=== PATIENT | male | born 1960 | race Caucasian/White ===

== ENCOUNTER 2021-01-19 01:27 | Emergency (ER) | payer BC, OTHER ==
[~2021-01-19] VITALS: Ht 172.7 cm; Wt 74.8 kg
[~2021-01-19 01:27] MED LIST: ATOR10TA PO
--- NOTE | 2021-01-19 01:27 | NUR ---
C/O INTERMITTENT MIDSTERNAL CHEST DISCOMFORT, INDIGESTION RADIATING TO BILATERAL FOREARM TINGLING X2 DAYS., PT AAOX4, DENIES SOB. NOT IN ACUTE DISTRESS, PT TO BED 2, PIV STARTED ,BLOOD DRAWN, PENDING ER PROVIDER CHASITY
[2021-01-19] MEDS ORDERED: MAG HYDROX/AL HYDROX/SIMETH 30 ML UDC ONE (02:09)
[2021-01-19] MEDS ORDERED: LIDOCAINE VISCOUS 2% UD 15 ML UDC ONE (02:09)
[2021-01-19] MEDS ORDERED: DICYCLOMINE HCL 10 MG/5 ML UDC ONE (02:10)
[2021-01-19] MEDS ORDERED: ASPIRIN 81 MG TAB.CHEW ONE (02:10)
[2021-01-19] MEDS: DICYCLOMINE HCL 10 MG/5 ML UDC PO ONE (02:15)
[2021-01-19] MEDS: MAG HYDROX/AL HYDROX/SIMETH 30 ML UDC PO ONE (02:15)
[2021-01-19] MEDS: LIDOCAINE VISCOUS 2% UD 15 ML UDC MM ONE (02:15)
[2021-01-19] MEDS: ASPIRIN 81 MG TAB.CHEW PO ONE (02:15)
[2021-01-19 02:18] LABS: BASOPHILS # (AUTO) 0.1 /CMM (0.0-0.2); BASOPHILS % (AUTO) 1.2 % (0.0-2.0); EOSINOPHILS % (AUTO) 1.9 % (0.0-6.0); HEMATOCRIT 45 % (39-51); HEMOGLOBIN 15.4 g/dL (13.5-17.5); LYMPHOCYTES # (AUTO) 2.9 /CMM (0.8-4.8); LYMPHOCYTES % (AUTO) 33.6 % (20.0-44.0); MEAN CORPUSCULAR HGB CONC 34 g/dl (31.0-36.0); MEAN CORPUSCULAR VOLUME 89 fL (80-96); MONOCYTES # (AUTO) 0.9 /CMM (0.1-1.30); MONOCYTES % (AUTO) 10.6 % (2.0-12.0); NEUTROPHILS # (AUTO) 4.6 /CMM (1.8-8.9); NEUTROPHILS % (AUTO) 52.7 % (43.0-81.0); PLATELET COUNT (AUTO) 215 /CMM (150-450); RED BLOOD CELL COUNT(AUTO) 5.13 MIL/uL (4.5-6.0); WHITE BLOOD COUNT (AUTO) 8.7 K/uL (4.3-11.0)
[2021-01-19 02:20] LABS: CALCIUM, SERUM 9.6 mg/dL (8.5-10.1); CARBON DIOXIDE 27 mmol/L (21-32); CHLORIDE 103 mmol/L (98-107); CREATININE 1.3 mg/dL (0.6-1.3); GLUCOSE 106 mg/dL (74-106); POTASSIUM 3.6 mmol/L (3.5-5.1); SODIUM SERUM 142 mmol/L (136-145); UREA NITROGEN, BLOOD 18 mg/dL (7-18)
[2021-01-19 02:33] LABS: ALANINE AMINOTRANSFERASE 35 U/L (12-78); ALBUMIN 4.2 g/dL (3.4-5.0); ALKALINE PHOSPHATASE 98 U/L (46-116); ASPARTATE AMINOTRANSFERASE 22 U/L (15-37); BILIRUBIN,DIRECT 0.1 mg/dL (0.0-0.2); BILIRUBIN,TOTAL 0.5 mg/dL (0.2-1.0); NT-PRO BNP 22 pg/mL (0-125); TOTAL PROTEIN, SERUM 7.6 g/dL (6.4-8.2)
--- NOTE | 2021-01-19 02:45 | NUR ---
pt will be staying for 2nd troponin 445am
[2021-01-19] MEDS ORDERED: LANS30CA56 PO (03:31)
--- NOTE | 2021-01-19 05:44 | NUR ---
Patient discharged to home in stable condition. Written and verbal after care instructions given. Patient verbalizes understanding of instruction.IV removed. Catheter intact and site benign. Pressure and 4x4 applied to site. No bleeding noted.
[2021-01-19 05:48] VITALS: BP 130/90
== END 2021-01-19 05:49 | disposition home or self-care (01) ==
LOC: ER 01:27
DX: R07.89 Other chest pain (principal); E78.00 Pure hypercholesterolemia, unspecified; Z98.890 Other specified postprocedural states; Z88.1 Allergy status to other antibiotic agents; Z79.899 Other long term (current) drug therapy
CPT/HCPCS: 36415; 71045-TC; 80048-TC; 80076-TC; 83880; 84484-TC; 85025-TC; 85378-TC

== ENCOUNTER 2021-03-10 04:24 | Emergency (ER) | payer BC ==
[~2021-03-10] VITALS: Ht 170.2 cm; Wt 68.9 kg
[~2021-03-10 04:24] MED LIST changes: +LANS30CA56 PO
--- NOTE | 2021-03-10 04:30 | NUR ---
PATIENT BIBSELF. C/O KIDNEY PAIN AND BACK PAIN. PATIENT IS A/O X 4, RR EVEN AND UNLABORED, NO SIGNS OF SOB NOTED. PATIENT CONNCETED TO [employer].
--- NOTE | 2021-03-10 04:53 | NUR ---
PATIENT TAKEN TO RAD
[2021-03-10 04:58] LABS: BILIRUBIN,URINE Negative (NEGATIVE); COLOR,URINE YELLOW (YELLOW); LEUKOCYTE ESTERASE ,URINE Negative (NEGATIVE); NITRITE, URINE Negative (NEGATIVE); PROTEIN,URINE Negative (NEGATIVE); UGLUCOSE Negative (NEGATIVE); UROBILINOGEN,URINE 0.2 EU/dL (0.2)
--- NOTE | 2021-03-10 05:16 | NUR ---
PATIENT RETURNED FROM RAD
[2021-03-10] MEDS ORDERED: IBUP-1957 PO (05:26)
[2021-03-10 05:30] VITALS: BP 128/79
[2021-03-10] MEDS ORDERED: IBUPROFEN 400 MG TABLET PO ONE (05:30)
--- NOTE | 2021-03-10 05:30 | NUR ---
Patient discharged to home in stable condition. RX and Written and verbal after care instructions given. Patient verbalizes understanding of instruction.
== END 2021-03-10 05:30 | disposition home or self-care (01) ==
LOC: ER 04:39
DX: M54.6 Pain in thoracic spine (principal); E78.00 Pure hypercholesterolemia, unspecified; Z98.890 Other specified postprocedural states; Z88.1 Allergy status to other antibiotic agents; Z79.899 Other long term (current) drug therapy
CPT/HCPCS: 71045-TC; 72074-TC; 74018

== ENCOUNTER 2021-06-02 04:21 | Emergency (ER) | payer BC ==
[~2021-06-02] VITALS: Ht 172.7 cm; Wt 76.2 kg
[~2021-06-02 04:21] MED LIST changes: +IBUP-1957 PO
--- NOTE | 2021-06-02 04:50 | NUR ---
PATIENT BIB SELF FROM HOME C/O UPPER ABDOMINAL PAIN RADIATING ACROSS UPPER QUADRANTS STARTED LAST NIGHT. PATIENT ALSO NOTICED BUMP ABOVE UMBILICUS FOR PAST FEW DAYS. PATIENT IS A/O X 4, RR EVEN AND UNLABORED, NO SOB NOTED. PATIENT CONNECTED TO CARDIAC AND POX MONITOR.
[2021-06-02] MEDS ORDERED: IV NS 0.9% 1,000 ML BAG IV ONE (05:00)
--- NOTE | 2021-06-02 05:03 | NUR ---
PATIENT UNABLE TO PROVIDE URINE AT THIS TIME.
--- NOTE | 2021-06-02 05:09 | NUR ---
BLOOD TAKEN AND SENT TO LAB
[2021-06-02 05:30] LABS: BASOPHILS % (AUTO) 0.6 % (0.0-2.0); EOSINOPHILS % (AUTO) 2.3 % (0.0-6.0); HEMATOCRIT 46 % (39-51); HEMOGLOBIN 15.4 g/dL (13.5-17.5); LYMPHOCYTES # (AUTO) 2.3 K/uL (0.8-4.8); LYMPHOCYTES % (AUTO) 29.4 % (20.0-44.0); MEAN CORPUSCULAR HGB CONC 34 g/dl (31.0-36.0); MEAN CORPUSCULAR VOLUME 88 fL (80-96); MONOCYTES # (AUTO) 0.7 K/uL (0.1-1.30); MONOCYTES % (AUTO) 8.7 % (2.0-12.0); NEUTROPHILS # (AUTO) 4.6 K/uL (1.8-8.9); PLATELET COUNT (AUTO) 230 K/uL (150-450); RED BLOOD CELL COUNT(AUTO) 5.22 MIL/uL (4.5-6.0); WHITE BLOOD COUNT (AUTO) 7.8 K/uL (4.3-11.0)
[2021-06-02 05:43] LABS: CALCIUM, SERUM 8.9 mg/dL (8.5-10.1); CARBON DIOXIDE 28 mmol/L (21-32); CHLORIDE 102 mmol/L (98-107); CREATININE 1.3 mg/dL (0.6-1.3); GLUCOSE 108 mg/dL (74-106); POTASSIUM 3.5 mmol/L (3.5-5.1); SODIUM SERUM 139 mmol/L (136-145); UREA NITROGEN, BLOOD 17 mg/dL (7-18)
[2021-06-02 05:49] LABS: ALANINE AMINOTRANSFERASE 49 U/L (12-78); ALKALINE PHOSPHATASE 95 U/L (46-116); ASPARTATE AMINOTRANSFERASE 22 U/L (15-37); BILIRUBIN,DIRECT 0.1 mg/dL (0.0-0.2); BILIRUBIN,TOTAL 0.7 mg/dL (0.2-1.0); LIPASE 179 U/L (73-393); TOTAL PROTEIN, SERUM 7.5 g/dL (6.4-8.2)
[2021-06-02 06:04] LABS: BILIRUBIN,URINE NEGATIVE (NEGATIVE); COLOR,URINE YELLOW (YELLOW); LEUKOCYTE ESTERASE ,URINE NEGATIVE (NEGATIVE); NITRITE, URINE NEGATIVE (NEGATIVE); PH,URINE 7.5 (5.0-8.0); PROTEIN,URINE NEGATIVE (NEGATIVE); UGLUCOSE NEGATIVE (NEGATIVE); UROBILINOGEN,URINE 0.2 EU/dL (0.2)
--- NOTE | 2021-06-02 08:00 | NUR ---
The patient is received in ER bed #11. Alert and oriented x4. Denies pain. In room air and denies SOB. Respiration regular and unlabored. Will continue to monitor the patient.
[2021-06-02] MEDS ORDERED: SULF1TAB48 PO (09:24)
[2021-06-02] MEDS ORDERED: ACET-907 PO (09:24)
[2021-06-02] MEDS ORDERED: ACET1TAB23 PO (09:25)
--- NOTE | 2021-06-02 09:50 | NUR ---
IV removed. Catheter intact and site benign. Pressure and 4x4 applied to site. No bleeding noted.Patient discharged to home in stable condition. Written and verbal after care instructions given. Patient verbalizes understanding of instruction.
[2021-06-02 09:51] VITALS: BP 126/85
== END 2021-06-02 09:51 | disposition home or self-care (01) ==
LOC: ER 04:28
DX: R10.11 Right upper quadrant pain (principal); R10.12 Left upper quadrant pain; E78.00 Pure hypercholesterolemia, unspecified; Z98.890 Other specified postprocedural states; Z88.1 Allergy status to other antibiotic agents; Z79.899 Other long term (current) drug therapy
CPT/HCPCS: 36415; 74176; 80048; 80076; 81003; 83690; 84484; 85025; 85730; 93005; 96360; 99285; J7030